=== PATIENT | male | born 1955 | race Caucasian/White ===

== ENCOUNTER → 2016-10-27 | Outpatient (REF) | payer OTHER ==
[2016-10-27 20:35] LABS: ALBUMIN 4.1 GM/DL (3.2-5.2); ALBUMIN/GLOBULIN RATIO 1.41 (1.00-1.93); ALKALINE PHOSPHATASE 62 U/L (45-117); ALT/SGPT 39 U/L (12-78); ANION GAP 9 MEQ/L (8-16); AST/SGOT 28 U/L (15-37); BILIRUBIN,TOTAL 0.8 MG/DL (0.2-1.0); BLOOD UREA NITROGEN 19 MG/DL (7-18); CALCIUM LEVEL 8.9 MG/DL (8.8-10.2); CARBON DIOXIDE LEVEL 28 MEQ/L (21-32); CHLORIDE LEVEL 104 MEQ/L (98-107); CHOLESTEROL LEVEL 158 MG/DL (<200); CREATININE FOR GFR 1.07 MG/DL (0.70-1.30); GLOMERULAR FILTRATION RATE > 60.0 (>49); GLUCOSE, FASTING 74 MG/DL (80-110); POTASSIUM SERUM 4.2 MEQ/L (3.5-5.1); SODIUM LEVEL 141 MEQ/L (136-145); TRIGLYCERIDES LEVEL 130 MG/DL (<150)
== END ==
LOC: M SFHCPLAZ 15:29
PROVIDERS: ATTEND Physician Assistant
DX: E78.4 Other hyperlipidemia (principal); Z12.5 Encounter for screening for malignant neoplasm of prostate; E55.9 Vitamin D deficiency, unspecified

== ENCOUNTER → 2016-11-17 | Outpatient (REF) | payer OTHER | LOC: M SMT 12:50 | PROVIDERS: ATTEND Nurse Practitioner Family | DX: R97.8 Other abnormal tumor markers (principal) ==

== ENCOUNTER → 2017-02-09 | Outpatient (CLI) | payer OTHER ==
[2017-02-11 14:13] LABS: PSA TOTAL 0.8 ng/mL (0.0-4.0)
== END ==
LOC: M SMT 13:36
PROVIDERS: ATTEND Nurse Practitioner Women's Health
DX: R97.8 Other abnormal tumor markers (principal)

== ENCOUNTER → 2018-10-21 | Outpatient (CLI) | payer OTHER ==
[2018-10-21 14:03] LABS: HEMOGLOBIN A1c 5.8 %
[2018-10-21 14:12] LABS: BLOOD UREA NITROGEN 20 MG/DL (7-18); CALCIUM LEVEL 9.1 MG/DL (8.8-10.2); CARBON DIOXIDE LEVEL 32 MEQ/L (21-32); CHLORIDE LEVEL 105 MEQ/L (98-107); CHOLESTEROL LEVEL 149 MG/DL (<200); CREATININE FOR GFR 1.07 MG/DL (0.70-1.30); GLOMERULAR FILTRATION RATE > 60.0 (>49); GLUCOSE, FASTING 99 MG/DL (70-100); HDL CHOLESTEROL 49 MG/DL (>40); LDL CHOLESTEROL 58 MG/DL (<100); NON-HDL-C 100 MG/DL; POTASSIUM SERUM 4.4 MEQ/L (3.5-5.1); SODIUM LEVEL 140 MEQ/L (136-145); TRIGLYCERIDES LEVEL 208 MG/DL (<150)
== END ==
LOC: M WUC 09:06
PROVIDERS: ATTEND Family Medicine
DX: Z13.1 Encounter for screening for diabetes mellitus (principal); E78.2 Mixed hyperlipidemia; N40.1 Benign prostatic hyperplasia with lower urinary tract symptoms
CPT/HCPCS: 36415; 80048; 80061; 83036; G0103

== ENCOUNTER 2023-04-01 10:12 | Emergency (ER) | payer MEDICARE, OTHER ==
[~2023-04-01] VITALS: Ht 182.9 cm; Wt 105.6 kg
[2023-04-01] MEDS ORDERED: JANT5TAB PO (10:32)
[2023-04-01] MEDS ORDERED: SERT-141 PO (10:32)
[2023-04-01] MEDS ORDERED: ATOR1TAB19 PO (10:32)
[2023-04-01] MEDS ORDERED: CLON0.5T17 PO (10:32)
[2023-04-01 10:59] LABS: VENOUS BASE EXCESS -0.1 (-2.0-2.0); VENOUS O2 SATURATION 95.1 % (60.0-80.0); VENOUS PARTIAL PRESSURE CO2 47.1 mmHg (38.0-50.0); VENOUS PARTIAL PRESSURE O2 78.7 mmHg (30.0-50.0); VENOUS PH 7.359 UNITS (7.330-7.430); VENOUS STANDARD HCO3 24.3 MMOL/L; VENOUS TOTAL CO2 27.4 MMOL/L (24.0-28.0)
[2023-04-01] MEDS ORDERED: ISOVUE-370 76% 100ML VIAL As Ordered ONE (11:02)
[2023-04-01 11:10] LABS: BASO % 0.5 % (0.0-1.0); EOS # 0.1 10^3/uL (0.0-0.5); EOS % 1.7 % (0.0-3.0); HEMATOCRIT 44.1 % (42.0-52.0); HEMOGLOBIN 15.5 g/dl (13.5-17.5); LYMPH % 14.5 % (24.0-44.0); MEAN CORPUSCULAR HEMOGLOBIN 32.9 pg (27.0-33.0); MEAN CORPUSCULAR HGB CONC 35.1 g/dl (32.0-36.5); MEAN CORPUSCULAR VOLUME 93.6 fl (80.0-96.0); MONO # 0.4 10^3/uL (0.0-0.8); MONO % 6.4 % (2.0-8.0); NEUTROPHILS % 76.4 % (36.0-66.0); PLATELET COUNT, AUTOMATED 210 10^3/uL (150-450); RED BLOOD COUNT 4.71 10^6/uL (4.30-6.10); WHITE BLOOD COUNT 6.6 10^3/uL (4.0-10.0)
[2023-04-01 11:26] LABS: INR 1.85; PROTHROMBIN TIME 20.9 SECONDS (12.5-14.5)
[2023-04-01 11:27] LABS: PARTIAL THROMBOPLASTIN TIME 32.6 SECONDS (24.8-34.2)
[2023-04-01 11:58] LABS: RSV AMPLIFICATION NEGATIVE (NEGATIVE)
[2023-04-01 12:39] LABS: APPEARANCE, URINE CLEAR (CLEAR); BACTERIA, URINE AUTO NEGATIVE (NEGATIVE); BILIRUBIN, URINE AUTO NEGATIVE (NEGATIVE); BLOOD, URINE BLOOD NEGATIVE (NEGATIVE); COLOR, URINE YELLOW (YELLOW); GLUCOSE, URINE (UA) AUTO NEGATIVE (NEGATIVE); KETONE, URINE AUTO NEGATIVE (NEGATIVE); LEUKOCYTE ESTERASE, URINE AUTO NEGATIVE (NEGATIVE); NITRITE, URINE AUTO NEGATIVE (NEGATIVE); PROTEIN, URINE AUTO NEGATIVE (NEGATIVE); RBC, URINE AUTO 0 /HPF (0-3); SPECIFIC GRAVITY URINE AUTO 1.055 (1.002-1.035); SQUAMOUS EPITHELIAL CELL UR AU 1 /HPF (0-6); UROBILINOGEN, URINE AUTO 0.2 mg/dL (0.0-2.0); WBC, URINE AUTO 0 /HPF (0-3)
[2023-04-01 12:53] LABS: AMPHETAMINES LEVEL URINE NEGATIVE (NEGATIVE); BARBITURATES URINE NEGATIVE (NEGATIVE); BENZODIAZEPINES URINE NEGATIVE (NEGATIVE); CANNABINOIDS URINE NEGATIVE (NEGATIVE); COCAINE METABOLITE URINE NEGATIVE (NEGATIVE); METHADONE URINE NEGATIVE (NEGATIVE); OPIATES URINE NEGATIVE (NEGATIVE); PHENCYCLIDINE URINE NEGATIVE (NEGATIVE)
[2023-04-01] MEDS ORDERED: NORCO, ANEXSIA 5/325MG TABLET (HYDROcodone/ACETAMINOPHEN) PO ONE (12:55)
[2023-04-01 13:18] LABS: ALBUMIN 3.8 G/DL (3.2-5.2); ALKALINE PHOSPHATASE 60 U/L (46-116); ALT/SGPT 23 U/L (7.0-40); AMYLASE 105 U/L (30-118); AST/SGOT 20 U/L (<34); BILIRUBIN,DIRECT 0.6 MG/DL (<0.4); BILIRUBIN,TOTAL 1.6 MG/DL (0.3-1.2); BLOOD UREA NITROGEN 17 MG/DL (9-23); CALCIUM LEVEL 8.9 MG/DL (8.3-10.6); CARBON DIOXIDE LEVEL 26 MMOL/L (20-31); CHLORIDE LEVEL 105 MMOL/L (98-107); CK-MB VALUE MASS < 1.0 NG/ML (<3.6); CPK CREATINE PHOSPHOKINASE 199 U/L (46-171); CREATININE FOR GFR 0.72 MG/DL (0.70-1.30); ETHYL ALCOHOL (ETHANOL) 0.005 % (0.000-0.010); GLOMERULAR FILTRATION RATE > 60.0 (>49); GLUCOSE, FASTING 95 MG/DL (74-106); LIPASE 36 U/L (12-53); SODIUM LEVEL 141 MMOL/L (136-145); TOTAL PROTEIN 6.7 G/DL (5.7-8.2)
[2023-04-01] MEDS ORDERED: HYDR-3713 PO (13:36)
[2023-04-01 13:54] VITALS: BP 150/83; TEMP 98.6; O2SAT 98
== END 2023-04-01 14:02 | disposition home or self-care (01) ==
LOC: EDBD 10:12 → M ED 10:12
DX: S22.41XA Multiple fractures of ribs, right side, initial encounter for closed fracture (principal); W10.8XXA Fall (on) (from) other stairs and steps, initial encounter; Y92.009 Unspecified place in unspecified non-institutional (private) residence as the place of occurrence of the external cause; E78.5 Hyperlipidemia, unspecified; I35.9 Nonrheumatic aortic valve disorder, unspecified; F41.9 Anxiety disorder, unspecified; Z88.8 Allergy status to other drugs, medicaments and biological substances; Z91.018 Allergy to other foods
CPT/HCPCS: 70450; 71045; 71260; 72125; 74177; 80047; 80048; 80076; 80307; 81001; 82077; 82150; 82550; 82553; 82803; 83605; 83690; 84484; 85025; 85610; 85730; 86850; 86900; 86901; 87631; 93005; 93041; 94010; 94760; 99285; Q9967